=== PATIENT | male | born 1935 | race Caucasian/White ===

== ENCOUNTER 2016-06-19 15:44 | Observation (INO) | payer MEDICARE ==
[2016-06-19 17:07] LABS: ABSOLUTE NEUTROPHIL COUNT 3.7 K/mm3 (1.8-7.7); BASO # 0.1 K/mm3 (0.0-0.2); EOS # 0.2 (0.0-0.5); EOS % 3.1 % (0.9-2.9); HEMATOCRIT 45.8 % (32.0-52.0); HEMOGLOBIN 15.2 gm/l (14.0-18.0); IMM NEUT% 0.4 % (0-1); LYMPH # 2.1 (1.0-4.8); LYMPH % 30.5 % (15-45); MEAN CELL VOLUME 93.3 fl (80.0-94.0); MEAN CORPUSCULAR HGB CONC 33.2 g/dl (33.0-37.0); MEAN PLATELET VOLUME 9.9 fl (7.4-10.4); MONO # 0.7 (0.0-0.8); MONO % 10.9 % (4-12); NEUT % 54.1 % (43-75); PLATELET COUNT 291 K/mm3 (130-400)
[2016-06-19] MEDS ORDERED: LACTATED RINGERS 1,000 ML ONE (17:14)
[2016-06-19 17:26] LABS: ALB/GLOB RATIO 1.3 (>1.0); ALBUMIN 3.8 gm/dL (3.5-5.7)
[2016-06-19 17:44] LABS: SPECIFIC GRAVITY 1.015 (1.001-1.030); URINE BILIRUBIN NEGATIVE (NEGATIVE); URINE BLOOD NEGATIVE (NEGATIVE); URINE GLUCOSE (UA) NEGATIVE (NEGATIVE); URINE LEUKOCYTE ESTERASE NEGATIVE (NEGATIVE); URINE NITRITE NEGATIVE (NEGATIVE); URINE PROTEIN NEGATIVE (NEGATIVE); URINE UROBILINOGEN NORMAL (0-1 mg/dl)
[2016-06-19 17:45] LABS: URINE APPEARANCE CLEAR; URINE COLOR AMBER
--- NOTE | 2016-06-19 18:31 | CT ---
HEAD W/O CON COMPARISON: Head CT without with contrast, 07/31/2015 HISTORY: Confusion. TECHNIQUE: Using a [employer] Aquilion [address] scanner, images were obtained through the head. An automated dose reduction technique was used to minimize patient radiation dose. DOSE INFORMATION: CTDIvol (mGy): 51.70 DLP(mGycm): 964.80 FINDINGS: Mass: None Intracranial Hemorrhage: None Acute Infarction: None Cerebral hemispheres: No change. Marked atrophy. Basal ganglia: No change. Old infarct anteriorly on the right. Thalami: Normal Brainstem: Normal Cerebellum: Normal Ventricles: Marked ventriculomegaly. Basilar cisterns: Normal Corpus callosum: Normal Pituitary fossa: Normal Middle ears and mastoid air cells: Normal Orbits and sinuses: Normal orbits. Mild mucosal thickening posterior left ethmoid air cell and small cyst in the sphenoid sinus. Skull and scalp: Normal Dural sinuses and vessels: Normal IMPRESSION: 1. No acute finding. No change is severe hydrocephalus. 2. 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 The report was sent to the emergency department electronic medical record system, 06/19/2016 at 18:31
[2016-06-19] MEDS ORDERED: BLISTEX LIPSTICK 1 EACH TP PRN (21:21)
[2016-06-19] MEDS ORDERED: BISACODYL 5 MG TABLET.EC PO PRN (21:21)
[2016-06-19] MEDS ORDERED: ACETAMINOPHEN 325 MG TABLET PO PRN (21:21)
[2016-06-19] MEDS ORDERED: INSULIN ASPART (DOSE) 100 UNITS/1 ML SUB-Q PRN (21:21)
[2016-06-19] MEDS ORDERED: BISACODYL 10 MG SUP PR PRN (21:21)
[2016-06-19] MEDS ORDERED: SODIUM CHLORIDE 0.9% 100 ML IV PRN (21:21)
[2016-06-19] MEDS ORDERED: MAGNESIUM HYDROXIDE 30 ML UDCUP PO PRN (21:21)
[2016-06-19] MEDS ORDERED: MENTHOL/CETYLPYRD 1 EACH LOZENGE PO PRN (21:21)
[2016-06-19] MEDS ORDERED: PUMP TUBING ONE (22:27)
[2016-06-19] MEDS: D5 1/2NS with 20 mEq KCL 1,000 ML IV SCH (22:34)
[2016-06-19] MEDS: DOCUSATE SODIUM 100 MG CAPSULE PO SCH (22:34)
[2016-06-19] MEDS ORDERED: INSULIN GLARGINE (DOSE) 100 UNITS/ML UNIT SUB-Q SCH (23:00)
[2016-06-19 23:18] VITALS: BMI 31.0
[2016-06-20 06:10] LABS: ABSOLUTE NEUTROPHIL COUNT 3.9 K/mm3 (1.8-7.7); BASO # 0.1 K/mm3 (0.0-0.2); EOS # 0.2 (0.0-0.5); EOS % 2.7 % (0.9-2.9); HEMATOCRIT 41.6 % (32.0-52.0); HEMOGLOBIN 13.8 gm/l (14.0-18.0); IMM NEUT% 0.1 % (0-1); LYMPH # 1.7 (1.0-4.8); LYMPH % 25.7 % (15-45); MEAN CELL VOLUME 91.8 fl (80.0-94.0); MEAN CORPUSCULAR HEMOGLOBIN 30.5 pg (27.0-31.0); MEAN CORPUSCULAR HGB CONC 33.2 g/dl (33.0-37.0); MONO # 0.9 (0.0-0.8); MONO % 12.8 % (4-12); NEUT % 57.7 % (43-75); PLATELET COUNT 251 K/mm3 (130-400); RED CELL DISTRIBUTION WIDTH 12.5 % (11.5-14.5)
[2016-06-20 06:29] LABS: CALCIUM 8.4 mg/dL (8.6-10.3)
[2016-06-20] MEDS ORDERED: OMEPRAZOLE 40 MG CAPSULE.DR PO SCH (07:00)
[2016-06-20] MEDS: SUCRALFATE 1 G TABLET PO SCH ×2 (07:06→11:33)
[2016-06-20] MEDS ORDERED: PANTOPRAZOLE 40 MG TABLET DR PO SCH (07:15)
--- NOTE | 2016-06-20 07:21 | HP ---
HANNA BRUCE [id number] DATE OF ADMISSION: June 19, 2016 CHIEF COMPLAINT: Weakness and confusion. HISTORY OF PRESENT ILLNESS: The patient is a 81-year-old male with diabetes and Parkinson's disease who lives in [facility] where he has a caregiver. He was brought in by his colleagues because of concerns of confusion which was noted around mid afternoon. He appeared to be weak and confused and was brought in to the emergency department for further evaluation. In the emergency department he was slow to respond. He was a two person assist whereas prior to that he was independent with his activities of daily living. He did not have any focal deficits. His initial workup was negative so he was referred to the hospitalist service for observation. REVIEW OF SYSTEMS: The patient denies any fevers or chills or upper respiratory symptoms, cough, dyspnea, wheezing, chest pain, shortness of breath or palpitations. He denies any nausea or vomiting, arthralgias, headaches, fainting, blackouts or seizures or urinary complaints. The patient does not know why he is here. He is oriented to person. He believes he is at [facility]. He does not know the year but he gets the month right. His caregiver has gone home. PAST MEDICAL HISTORY: Is significant for: 1. Gastroesophageal reflux disease. 2. He has had a history of prostate cancer. 3. He has had hyperlipidemia. 4. 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 5. He has had some major depression. 6. He has had some chronic urinary incontinence. 7. He has not previously been hospitalized here. 8. For his Parkinson's disease, he is followed by Dr. Russ Wagoner in [place]. PAST SURGICAL HISTORY: Significant for: 1. Prostate surgery in 1995. 2. Tonsillectomy in the . 3. Eye surgery for double vision in 1953. ALLERGIES: HE HAS NO KNOWN DRUG ALLERGIES. CURRENT MEDICATIONS: Consist of: 1. Vitamin D3 5000 units daily. 2. Fish oil 1000 mg twice daily. 3. Vitamin C 1000 mg daily. 4. Zocor 40 mg at bedtime. 5. Prilosec 40 mg twice daily. 6. Carafate 1 g at bedtime and before meals. 7. Prozac 20 mg daily. 8. Ditropan XL 5 mg daily. 9. Sinemet 25/100 mg tablets three times daily. 10. Humalog insulin 12 units subcutaneous three times a day with meals. 11. Lantus insulin 38 units subcutaneous at bedtime. 12. Enteric coated aspirin 81 mg daily. FAMILY HISTORY: Unremarkable. 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 He has never smoked and drinks alcohol rarely. His primary care provider is Dr. Lyman. PHYSICAL EXAMINATION: VITAL SIGNS: Initial vital signs showed a blood pressure 147/76, respirations 18, pulse 77, oxygen saturation 94% on room air. GENERAL: This is an obese male in no acute distress. HEENT: Shows pupils equal, round, and reactive to light. Extraocular movements are intact. No oral lesions are present. NECK: Is supple without lymphadenopathy or thyromegaly. CHEST: Lungs are clear to auscultation bilaterally. CARDIOVASCULAR: Exam reveals a regular rate and rhythm without a murmur. ABDOMEN: Is obese, soft, nontender, nondistended with positive bowel sounds. GENITOURINARY: Exam is deferred. RECTAL: Exam is deferred. EXTREMITIES: Show no peripheral edema. NEUROLOGIC: Exam is nonfocal. LABORATORY STUDIES: Included a CBC with a white count of 6.8, hemoglobin of 15.2, and a platelet count of 291,000. Chemistry profile shows sodium of 140, potassium 3.6, carbon dioxide 31, BUN 15, creatinine 0.9. Liver function tests are normal. Glucose was 179. Cardiac enzymes were negative. Urinalysis was unremarkable. DIAGNOSTIC IMAGING: He had a CT of the brain showing some ventriculomegaly which has been stable compared to previous studies and an old right basal ganglia infarct. ASSESSMENT AND PLAN: 1. The patient has had some increased confusion. Seems to be returning to his baseline at this point, but he has worsening generalized weakness. He is placed under observation. We will get physical therapy and occupational therapy to see the patient in the morning. He will be gently hydrated overnight. 2. He has a history of Parkinson's disease. This appears to be stable. 3. He has a history of gastroesophageal reflux disease, stable. 4. Diabetes with fair control. 5. Code status is FULL CODE. cc: Hill Lyman D.O.
[2016-06-20] MEDS: INSULIN ASPART (DOSE) 100 UNITS/1 ML SUB-Q SCH ×2 (08:46→12:28)
[2016-06-20] MEDS: DOCUSATE SODIUM 100 MG CAPSULE PO SCH (08:46)
[2016-06-20] MEDS: D5 1/2NS with 20 mEq KCL 1,000 ML IV SCH (08:50)
[2016-06-20] MEDS ORDERED: ASPIRIN (ENTERIC COATED) 81 MG TABLET.EC PO SCH (09:00)
[2016-06-20] MEDS ORDERED: INSULIN LISPRO 12 UNIT SUB-Q SCH (09:00)
[2016-06-20] MEDS ORDERED: OXYBUTYNIN CHLORIDE 5 MG TAB.XL PO SCH (09:00)
[2016-06-20] MEDS ORDERED: FLUOXETINE HCL 20 MG CAPSULE PO SCH (09:00)
[2016-06-20] MEDS ORDERED: CARBIDOPA/LEVODOPA 25/100 1 EACH TABLET PO SCH (09:00)
[2016-06-20] MEDS ORDERED: Non Formulary Drug 1 EACH EA (Omega-3 Fatty Acids/Fish Oil [Fish Oil 1,000 Mg Softgel] 1 E PO SCH (09:00)
--- NOTE | 2016-06-20 10:09 | PDOC43 ---
- Subjective Chief Complaint: Confusion and weakness Alert and oriented, still weaker than normal but otherwise feels at his baseline. - Objective Vital Signs Temperature 98.5 F 06/20/16 08:51 Pulse Rate 65 06/20/16 08:51 Respiratory Rate 18 06/20/16 08:51 Blood Pressure 144/76 06/20/16 08:51 O2 Saturation by Pulse Oximetry 92 06/20/16 08:51 Oxygen Delivery Method Room Air Oxygen Flow Rate 0 Intake and Output 06/19/16 06/20/16 06/21/16 06:59 06:59 06:59 Intake Total 790 Output Total 375 Balance 415 General: Alert, Cooperative, No Acute Distress HEENT: Mucous membr. moist/pink Lungs: Clear to Auscultation Bilaterally Cardiovascular: Regular Rate and Rhythm Abdomen: Soft, Normal Bowel Sounds, No Tenderness, No Masses Extremities: Pulses Diminished but Palpable, No Edema Skin: Normal Color Neurological: Normal Speech Psych/Mental Status: Normal Mood Laboratory 06/20/16 05:30 06/20/16 05:30 06/20/16 06/20/16 07:06 05:30 RBC 4.53 L Estimated GFR 130 H POC Capillary Glucose 108 H Calcium 8.4 L Current Medications: Current meds reviewed in EMR. - Problems: Assessment/Plan (1) Weakness Status: AcuteAssessment/Plan: With normal chemistry and vital signs. Cause unclear but improving. Return home. (2) Confusion Status: AcuteAssessment/Plan: With normal chemistry and vital signs. Cause unclear but improving. Return home. (3) Parkinson disease Status: ChronicAssessment/Plan: Stable on Sinamet (4) GERD (gastroesophageal reflux disease) Qualifiers: Esophagitis presence: esophagitis presence not specified Qualifier Code : (K21.9) Gastro-esophageal reflux disease without esophagitis Status: ChronicAssessment/Plan: Stable on PPI (5) DM2 (diabetes mellitus, type 2) Qualifiers: Diabetes mellitus complication status: with ophthalmic complications Diabetes mellitus complication detail: with diabetic retinopathy Diabetic retinopathy severity: with unspecified retinopathy severity Diabetes mellitus macular edema: macular edema presence unspecified 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 BG well controlled. VTE Prophylaxis: IPC boots on Disposition: return home
[2016-06-20 10:59] VITALS: BP 137/71
[2016-06-20] MEDS ORDERED: SIMVASTATIN 40 MG TABLET PO SCH (20:00)
== END 2016-06-20 13:16 | disposition other institution (70) ==
LOC: ED 15:44 → MS 20:09 → INTOOBSV 20:09
PROVIDERS: ADMIT Family Medicine; ATTEND Family Medicine
DX: R53.1 Weakness (principal); R41.0 Disorientation, unspecified; G20 Parkinson's disease; K21.9 Gastro-esophageal reflux disease without esophagitis; E11.319 Type 2 diabetes mellitus with unspecified diabetic retinopathy without macular edema; Z79.4 Long term (current) use of insulin; E78.5 Hyperlipidemia, unspecified; F32.9 Major depressive disorder, single episode, unspecified; E11.51 Type 2 diabetes mellitus with diabetic peripheral angiopathy without gangrene
CPT/HCPCS: 85025 ×2; 80048; 80053; 81003; 84484; 36415; 70450; 97165; 99285 ×2; 82962; 93005; A9270 ×11; J7120; J1815 ×2